=== PATIENT | female | born 1965 | race Caucasian/White ===

== ENCOUNTER → 2021-12-19 16:29 | Outpatient (BNVA) | payer SELFPAY | PROVIDERS: Visit Provider Nurse Practitioner | DX: R13.10 Dysphagia, unspecified (principal); E04.9 Nontoxic goiter, unspecified | CPT/HCPCS: 80053; 84439; 84443; 84481; 85025 ==

== ENCOUNTER → 2022-03-26 14:39 | Outpatient (BNVA) | payer SELFPAY | PROVIDERS: Visit Provider Registered Nurse Neonatal Intensive Care | DX: N39.0 Urinary tract infection, site not specified (principal); M79.671 Pain in right foot | CPT/HCPCS: 73630; 81000; 87086 ==

== ENCOUNTER 2022-05-03 15:42 | Outpatient (CLI) | payer SELFPAY ==
--- NOTE | 2022-05-03 15:45 | US_ITS ---
WS: [id number] THYROID ULTRASOUND HISTORY: R13.10 - Dysphagia, unspecified COMPARISON: None available. Right lobe: 1.5 cm x 1.8 cm x 5.2 cm (w x ap x l). Volume: 7.2 cm3. Normal size lobe. Multiple small thyroid nodules are identified. Spongiform nodule in the mid RIGHT t hyroid measures 0.8 x 0.7 x 1.0 cm. There are a few tiny echogenic foci. There is an additional round solid nodule in the mid gland with a hypoechoic rim and only minimal increased vascularity. This nod ule measures 1.0 x 0.6 x 1.0 cm. Left lobe: 1.8 cm x 1.7 cm x 5.0 cm (w x ap x l). Volume: 7.7 cm3. Multiple small nodules within a heterogeneous gland. Scattered ill-defined nodules. The largest nodul e in the mid gland measures 1.0 x 0.6 x 1.1 cm. No echogenic foci. Smaller nodule inferior LEFT thyro id measures 0.7 x 0.6 x 0.8 cm. Isthmus: 0.4 cm. No adenopathy. US/US thyroid [id number] IMPRESSION: 1. Multinodular goiter. Bilateral thyroid nodules. Based upon the TI-RADS crit eria yearly follow-up ultrasound evaluation is recommended to document long-ter m stability. These nodules are all less than 1.5 cm and only mildly suspicious. If these nodules increase in concerning ultrasound findings biopsy may be nece ssary. At this time fine-needle aspiration is not recommended. 2. Bilateral thyroid nodules are only mildly suspicious. If these nodules incr eased to greater than 1.5 cm in diameter or other concerning features are arise biopsy may be recommended.
== END 2022-05-03 15:43 | disposition home or self-care (01) ==
LOC: RAD 15:44
PROVIDERS: PCP Nurse Practitioner; Visit Provider Nurse Practitioner
DX: R13.10 Dysphagia, unspecified (principal); E04.2 Nontoxic multinodular goiter
CPT/HCPCS: 76536

== ENCOUNTER → 2023-11-01 10:53 | Outpatient (BNVA) | payer SELFPAY | PROVIDERS: PCP Nurse Practitioner; Visit Provider Physician Assistant | DX: R30.0 Dysuria (principal) | CPT/HCPCS: 81000 ==

== ENCOUNTER → 2023-11-08 09:24 | Outpatient (BNVA) | payer SELFPAY | PROVIDERS: PCP Nurse Practitioner; Visit Provider Nurse Practitioner Family | DX: N39.0 Urinary tract infection, site not specified (principal); R31.9 Hematuria, unspecified | CPT/HCPCS: 80053; 81000; 85025; 87086 ==

== ENCOUNTER → 2024-02-05 14:44 | Outpatient (BNVA) | payer SELFPAY | PROVIDERS: PCP Nurse Practitioner; Visit Provider Nurse Practitioner | DX: R39.9 Unspecified symptoms and signs involving the genitourinary system (principal) | CPT/HCPCS: 81000 ==

== ENCOUNTER → 2024-05-03 19:17 | Outpatient (BNVA) | payer SELFPAY | PROVIDERS: PCP Nurse Practitioner; Visit Provider Emergency Medicine | DX: R30.0 Dysuria (principal); N32.89 Other specified disorders of bladder | CPT/HCPCS: 81000; 87086 ==

== ENCOUNTER → 2024-06-19 12:56 | Outpatient (BNVA) | payer SELFPAY | PROVIDERS: PCP Nurse Practitioner; Visit Provider Clinical Nurse Specialist Adult Health | DX: N30.01 Acute cystitis with hematuria (principal) | CPT/HCPCS: 81000; 87086 ==

== ENCOUNTER → 2024-07-08 11:08 | Outpatient (BNVA) | payer SELFPAY | PROVIDERS: PCP Nurse Practitioner; Visit Provider Nurse Practitioner | DX: M79.671 Pain in right foot (principal); M77.31 Calcaneal spur, right foot | CPT/HCPCS: 73620 ==

== ENCOUNTER 2025-04-08 20:18 | Emergency (ER) | payer BC, MEDICAID, SELFPAY ==
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
--- OUTSIDE RECORDS SUMMARY | 2025-02-24 02:23 | XMS_ITS | Continuity of Care Document ---
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 INFECTIONS AND ARE TREATED WITH ANTIBIOTICS. URINE CULTURES ARE OFTEN SENT FOR THOSE AT RISK OF COMPLICATED URINARY TRACT INFECTION AND MAY BE INSTRUCTED TO CHANGE ANTIBIOTICS IN A FEW DAYS IF CULTURE RESULTS SHOW RESISTANCE TO THE INITIAL ANTIBIOTIC CHOSEN. AZO OVER THE COUNTER OR PHENOZOPYRIDINE PRESCRIPTION CAN ASSIST WITH BLADDER SYMPTOMS, BUT WILL TURN THE URINE BRIGHT ORANGE TEMPORARILY. IF ON THE CORRECT REGIMEN, SYMPTOMS SHOULD BE MUCH IMPROVED WITHIN A FEW DAYS--SEEK IMMEDIATE TREATMENT IF WORSENING. SYMPTOMS THAT ARE ESPECIALLY CONCERNING ARE BEING UNABLE TO URINATE, PAIN TO ABDOMEN/SIDE, FEVER, CHILLS, DIZZYNESS, NAUSEA AND VOMITING THAT MAKES IT IMPOSSIBLE TO KEEP MEDICATION DOWN. Related to ACUTE CYSTITIS WITH HEMATURIA URINARY TRACT INFECT IONS CAN INCLUDE BLADDER INFECTIONS OR KIDNEY INFECTIONS AND ARE TREATED WITH ANTIBIOTICS. URINE CULTURES ARE OFTEN SENT FOR THOSE AT RISK OF COMPLICATED URINARY TRACT INFECTION AND MAY BE INSTRUCTED TO CHANGE ANTIBIOTICS IN A FEW DAYS IF CULTURE RESULTS SHOW RESISTANCE TO THE INITIAL ANTIBIOTIC CHOSEN. AZO OVER THE COUNTER OR PHENOZOPYRIDINE PRESCRIPTION CAN ASSIST WITH BLADDER SYMPTOMS, BUT WILL TURN THE URINE BRIGHT ORANGE TEMPORARILY. IF ON THE CORRECT REGIMEN, SYMPTOMS SHOULD BE MUCH IMPROVED WITHIN A FEW DAYS--SEEK IMMEDIATE TREATMENT IF WORSENING. SYMPTOMS THAT ARE ESPECIALLY CONCERNING ARE BEING UNABLE TO URINATE, PAIN TO ABDOMEN/SIDE, FEVER, CHILLS, DIZZYNESS, NAUSEA AND VOMITING THAT MAKES IT IMPOSSIBLE TO KEEP MEDICATION DOWN. ANTIBIOTICS ARE PRESCRIBED WHEN A BACTERIAL INFECTION IS CONFIRMED OR SUSPECTED. ANTIBIOTICS DO NOT WORK FOR VIRAL INFECTIONS. OVER THE COUNTER PROBIOTICS SUPPLEMENTS MAY BE TAKEN AND/OR INCREASE PROBIOTIC FOODS SUCH YOGURT WHILE TAKING ANTIBIOTICS RECOMMENDED (AVOID YOGURT IF LACTOSE INTOLERANT). MOST ANTIBIOTICS CAN BE TAKEN WITH FOOD TO AVOID STOMACHE UPSET SUCH NAUSEA, VOMITING OR DIARRHEA. IF CONCERNING OR SEVERE ADVERSE REACTIONS, PLEASE SEEK IMMEDIATE TREATMENT. FOR WOMEN OF CHILDBEARING AGE: control pills may not work as well in preventing when an antibiotic is used. CONSIDER additional method of contraception while taking antibiotic TO AVOID IF DESIRED. STRICT ER PRECAUTIONS, HOME CARE, FOLLOW UP DISCUSSED IN LENGTH WITH PATIENT. PATIENT VERBALZIED UNDERSTANDING AND AGREED TO PLAN OF CARE. . Related to Acute cystitis with hematuria DRINK PLENTY OF FLUI DS INCLUDING SPORTS DRINKS/PEDIALYTE, WATER, JUICES AND OTHER REHYDRATING FLUIDS. STAY AWAY FROM CAFFEINATED BEVERAGES THEY CAUSE DEHYDRATION. FOR PAIN OR FEVER, TAKE TYLENOL (ACETOMINOPHEN) EVERY 4-6 HOURS AND/OR IBUPROFEN (MOTRIN, ADVIL) EVERY 6-8 HOURS. Rest, ice, compression, elevation (RICE) protocol can be used for injuries.Follow up is important. F/u with primary care provider or waste management specialist if your injury is not improving or worsening. Do not push through pain as this may make the injury worse. Related to Sternal pain DRINK PLENTY OF FLUI DS INCLUDING SPORTS DRINKS/PEDIALYTE, WATER, JUICES AND OTHER REHYDRATING FLUIDS. STAY AWAY FROM CAFFEINATED BEVERAGES THEY CAUSE DEHYDRATION. FOR PAIN OR FEVER, TAKE TYLENOL (ACETOMINOPHEN) EVERY 4-6 HOURS AND/OR IBUPROFEN (MOTRIN, ADVIL) EVERY 6-8 HOURS. Drink plenty of fluids . Empty your bladder frequently. Avoid caffeine, alcohol, nicotine and spicy foods as they may irritate the bladder. IF YOU DEVELOP FEVER/CHILLS, NAUSEA/VOMITING, OR BACK PAIN, RETURN IMMEDIATELY OR GO TO THE ER THESE MAY INDICATE A KIDNEY INFECTION. Related to Dysuria WEAR FILTER MASK WHI LE CLEANING OUT OLD SHEDSPCP FOR CONTINUED ISSUES Related to Acute cough WATCH CLOSELY FOR TH TOOTIE SIGNS OF INFECTION: REDNESS; DRAINAGE/PUS; WARMTH AT SITE OR GENERAL FEVER; SWELLING; RED STREAKS; INCREASING PAIN. RETURN TO THE CLINIC OR GO TO THE EMERGENCY ROOM IF THESE SYMPTOMS DEVELOP. DRINK PLENTY OF FLUIDS INCLUDING SPORTS DRINKS/PEDIALYTE, WATER, JUICES AND OTHER REHYDRATING FLUIDS. STAY AWAY FROM CAFFEINATED BEVERAGES THEY CAUSE DEHYDRATION. FOR PAIN OR FEVER, TAKE TYLENOL (ACETOMINOPHEN) EVERY 4-6 HOURS AND/OR IBUPROFEN (MOTRIN, ADVIL) EVERY 6-8 HOURS Related to Foreign body in right foot, initial encounter DRINK PLENTY OF FLUI DS INCLUDING SPORTS DRINKS/PEDIALYTE, WATER, JUICES AND OTHER REHYDRATING FLUIDS. Take medication as prescribed. Wash all bedding/clothing in HOT soapy water. You may use topical over the counter creams such as calamine or hydrocortisone. You may take over the counter Pepcid and Benadryl for symptoms. Related to Acute contact dermatitis DRINK PLENTY OF FLUI DS INCLUDING SPORTS DRINKS/PEDIALYTE, WATER, JUICES AND OTHER REHYDRATING FLUIDS. STAY AWAY FROM CAFFEINATED BEVERAGES THEY CAUSE DEHYDRATION. FOR PAIN OR FEVER, TAKE TYLENOL (ACETOMINOPHEN) EVERY 4-6 HOURS AND/OR IBUPROFEN (MOTRIN, ADVIL) EVERY 6-8 HOURS. Please use a decongestant medication (e.g. medications containing phenylephrine or psuedophedrine) as needed for the next 2-3 days for nasal congestion symptoms. Also add Mucinex/guaifenesin with plenty of fluids to thin the mucus and facilitate drainage. Related to Acute upper respiratory infection, unspecified Bronchitis: Care Ins tructionsYour Care InstructionsPicture of normal and inflamed bronchial tubes Bronchitis is inflammation of the bronchial tubes, which carry air to the lungs. The tubes swell and produce mucus, or phlegm. The mucus and inflamed bronchial tubes make you cough. You may have trouble breathing.Most cases of bronchitis are caused by viruses like those that cause colds. Antibiotics usually do not help and they may be harmful.Bronchitis usually develops rapidly and lasts about 2 to 3 weeks in otherwise healthy people.Follow-up care is a hernandez part of your treatment and safety. Be sure to make and go to all appointments, and call your doctor if you are having problems. It's also a good idea to know your test results and keep a list of the medicines you take.How can you care for yourself at home?Take all medicines exactly as prescribed. Call your doctor if you think you are having a problem with your medicine.Get some extra rest.Take a Related to Acute bronchitis, unspecified organism RECOMMEND FOLLOW UP WITH UROLOGY AND PCPWE WILL CALL YOU IN 3-5 DAYS WITH THE RESULTS OF YOUR URINE CULTURE. Related to Urinary incontinence, unspecified type DRINK PLENTY OF FLUI DS INCLUDING SPORTS DRINKS/PEDIALYTE, WATER, JUICES AND OTHER REHYDRATING FLUIDS. STAY AWAY FROM CAFFEINATED BEVERAGES THEY CAUSE DEHYDRATION. FOR PAIN OR FEVER, TAKE TYLENOL (ACETOMINOPHEN) EVERY 4-6 HOURS AND/OR IBUPROFEN (MOTRIN, ADVIL) EVERY 6-8 HOURS. GARGLE WITH SALT WATER EVERY FEW HOURS NEEDED FOR SORE THROAT. USE 1 TEASPOON OF SALT IN 8-12 OUNCES OF WARM WATER. DRINK COOL LIQUIDS AND TRY COOL SOFT FOODS TO SOOTHE THROAT (JELL-O, ICE CREAM, POPSICLES, YOGURT). OLDER CHILDREN AND ADULTS MAY USE CHLORASEPTIC SPRAY OR THROAT LOZENGES TO HELP SOOTHE THE THROAT WELL. Will notify of throat culture results Related to Acute pharyngitis, unspecified etiology PLEASE READ EDUCATIO N HANDOUT PROVIDED TO YOU TODAY AT YOUR CLINIC VISIT. DRINK PLENTY OF FLUIDS INCLUDING SPORTS DRINKS/PEDIALYTE, WATER, JUICES AND OTHER REHYDRATING FLUIDS. STAY AWAY FROM CAFFEINATED BEVERAGES THEY CAUSE DEHYDRATION. FOR PAIN OR FEVER, TAKE TYLENOL (ACETOMINOPHEN) EVERY 4-6 HOURS AND/OR IBUPROFEN (MOTRIN, ADVIL) EVERY 6-8 HOURS. Related to Abrasion of left cornea, initial encounter Assessments Type Assessment Date No Information Patient Care Teams Name Effective Dates (start - stop) Status Members No Information
--- NOTE | 2025-04-08 20:28 | ED_ITS ---
HPI - General Adult General: Chief complaint: Skin/Abscess/Foreign Body Stated complaint: spider bite Time Seen by Provider: 04/08/25 20:19 History of Present Illness: 59-year-old female presents emergency ro om complaining that she was bitten by a spider on the right forearm she refers to an area where there is mild swelling and some linear scratching overlying the dorsal surface of the distal right radius. There are no puncture wounds there is no abscess no active bleeding or drainage. Associated symptoms: Deny chest pain, dyspnea or rash Related Data Previous Rx's ?Medication ?Instructions ?Recorded diclofenac sodium 1 % topical gel 4 g topical QID PRN pain #100 grams 07/08/24 cephalexin 500 mg capsule 500 mg PO TID #21 caps 04/08 Allergies Allergy/AdvReac Type Severity Reaction Status Date / Time penicillin G Allergy ALGY-Hives Verified 04/08/25 20:35 sulfamethoxazole (From Allergy ALGY-Hives Verified 04/08/25 20:35 Bactrim) trimethoprim (From Bactrim) Allergy ALGY-Hives Verified 04/08/25 20:35 Review of Systems Const: Denies: fever(s) or chills Card: Denies: chest pain Resp: Denies: dyspnea GI: Denies: abdominal pain : Denies: dysuria, urinary frequency or urinary urgency Musc: Denies: neck pain or back pain Skin/Breast: Denies: rash PFSH ED PFSH: Medical History Photophobia Photo-Oculodynia BMI 37.0-37.9, adult Surgical History Hx of shoulder surgery left Family History Father Cancer Mother Hypertension Stroke CAD (coronary artery disease) Denies family history of Diabetes Dementia Social History Smoking and tobacco/nicotine status: never used tobacco/nicotine Second hand smoke exposure: No Alcohol intake: never Substance/Drug Use: never Adopted: No Caregiver/support person: No Lives independently: Yes Household members: none Housing: House Marital status: Number of children: 4 Number of grandchildren: 2 Physical Exam Const: COMMON NORMALS: no acute distress GENERAL APPEARANCE: cooperative and comfortable ORIENTATION/CONSCIOUSNESS: Yes awake, Yes oriented to person, Yes oriented to place and Yes oriented to time HENMT: COMMON NORMALS: normocephalic, atraumatic and hearing grossly normal bilaterally HEAD & SCALP: normocephalic and atraumatic Resp: COMMON NORMALS: normal respiratory effort, No retractions and No use of accessory muscles Extremity: COMMON NORMALS: normal to inspection, capillary refill normal, no clubbing, cyanosis or edema, no calf tenderness and no pedal edema OTHER: Distal forearm dorsal third with some light linear scratches mildly raised area no significant erythema or induration no drainage no fluctuance. The area is slightly inflamed extends about 4 inches and is about an inch and a half wide. Neuro: SENSORIUM/ORIENTATION: Yes oriented to person, Yes oriented to place and Yes oriented to time Skin: COMMON NORMALS: no rashes or lesions noted GENERAL SKIN EXAM: no rashes or lesions noted Course Vital Signs: Vital signs: Vital Signs Temperature 98.6 F 04/08/25 20:31 Pulse Rate 99 04/08/25 20:31 Respiratory Rate 17 04/08/25 20:31 Blood Pressure 114/77 04/08/25 20:54 Pulse Oximetry 99 04/08/25 20:54 Oxygen Delivery Me thod Room Air 04/08/25 20:54 MDM - General Adult Medical Decision Making Does not appear to be an insect bite of any kind this appears to be more of a scratch there may be some early cellulitis there. Will go ahead and update her tetanus start her on cephalexin 500 3 times daily for 7 days No radiology studies performed this visit Discharge Plan Discharge Patient Disposition: Home Clinical Impression: Cellulitis Condition: Stable Prescriptions: New cephalexin 500 mg capsule 500 mg PO TID Qty: 21 0RF No Action diclofenac sodium 1 % gel 4 g topical QID PRN (Reason: pain) Qty: 100 0RF Rx Instructions: apply to foot; for foot includes sole/toes/top of foot Discharge Orders: Discharge ED (Routine); Ordered 04/08/25 Ordered By: Steven Conroy Referrals: Karyn Jama, [facility] [Primary Care Provider, Family Practice] Discharge Diet: Usual diet Discharge Activity: Resume usual activity Patient Instructions: Opioid Safety, Pain Management, Patient Portal & Alonzo Instructions Activity Restrictions/Additional Instructions: [facility] you [facility] your healthcare needs today. It is very important that you follow up as instructed or that you return to the Emergency Department should you have concerns or if your condition changes or worsens in any way. Emergency department visits are focused on emergent conditions, in some cases you may require further evaluation on an outpatient basis. You were seen in the emergency room with concerns of a area of infection on your right forearm. He has a mild inflammation of that area appears to have been scratched. We updated your tetanus will put you on cephalexin 1 pill 3 times a day for 7 days follow-up with your primary care doctor if not improving (Please note that included in your discharge packet is information concerning opioid safety and pain management. This information is given to all patients were discharged from the ER regardless of their discharge diagnosis or the medicines they usually take or are prescribed.) Print Language: Welsh Coding Level of Care Code ED [employer] Drafter for Estelle Teixeira
[2025-04-08 20:31] VITALS: BP 131/79; PULSE 99; RESP 17; TEMP 37; O2SAT 97; BMI 39.9
[2025-04-08 20:54] VITALS: BP 114/77; O2SAT 99
[2025-04-08] MEDS: tetanus-dipt-pertussis 0.5 mL SDV IM (21:16)
[2025-04-08 21:24] VITALS: BP 136/88; PULSE 93; RESP 17; O2SAT 93
== END 2025-04-08 21:25 | disposition home or self-care (01) ==
PROVIDERS: Emergency Provider Family Medicine; PCP Nurse Practitioner
DX: L03.113 Cellulitis of right upper limb (principal); Z23 Encounter for immunization
CPT/HCPCS: 90715; 99283